=== PATIENT | female | born 1950 | race Caucasian/White ===

== ENCOUNTER 2025-01-14 07:29 | Day surgery (SDC) | payer MEDICARE ==
[2025-01-13 11:24] LABS: MEAN PLATELET VOLUME 8.6 FL (7.4-10.4); RED CELL DISTRIBUTION WIDTH 14.0 % (11.5-14.5)
[2025-01-13 11:38] LABS: CREATININE 1.20 MG/DL (0.40-0.90); TOTAL CARBON DIOXIDE 27.0 MMOL/L (24-32); eGFR 44 ML/MIN
[2025-01-13 11:52] LABS: APTT 27 SECONDS (22-32); INR 1.0 INR
[2025-01-14] VITALS (12 sets, daily range): BP systolic 125–161; BP diastolic 72–100; PULSE 40–88; RESP 16; TEMP 97.6; O2SAT 93–97
[~2025-01-14] VITALS: Ht 167.6 cm; Wt 105.1 kg
--- NOTE | 2025-01-14 07:50 | ELECTROCARDIOGRAPH REPORT ---
[facility] Test Date: 2025-01-14 Test Time: 07:48:24 Pat Name: ANETA HOLLIDAY Department: SHORT STAY 1ST FLOOR Room: Gender: F Satellite Technician: AMAURY : 1950 Requested By: CLEMENT MUÑIZ Order Number: [id number] Reading MD: Dr. Yenny Dugan Measurements Intervals [place] Rate: 41 P: 33 IN: 234 QRS: -62 QRSD: 111 T: 15 QT: 502 QTc: 415 Interpretive Statements Sinus bradycardia Prolonged IN interval Left anterior fascicular block Abnormal R-wave progression, late transition Borderline T abnormalities, anterior leads Electronically Signed On 01-15-2025 6:54:[address] Yenny Dugan Please click the below link to view image of tracing.
[2025-01-14] MEDS ORDERED: ceFAZolin 2gm/dext,iso 50mL 50 ML IV ONE (08:10)
[2025-01-14] MEDS ORDERED: clindamycin-Cleocin 900mg/D5W 50 ML IV ONE (08:15)
[2025-01-14] MEDS ORDERED: ESTR42.510 TRANSUR (08:24)
[2025-01-14] MEDS ORDERED: FLEC100T PO (08:24)
[2025-01-14] MEDS ORDERED: CHOL500061 PO (08:24)
[2025-01-14] MEDS ORDERED: Areds (08:24)
[2025-01-14] MEDS ORDERED: KRIL1CAP40 PO (08:24)
[2025-01-14] MEDS ORDERED: LEVO100T9 PO (08:24)
[2025-01-14] MEDS ORDERED: CARV6.253 PO (08:24)
[2025-01-14] MEDS ORDERED: LIDOcaine 1% W/epiNEPHrine 1:100,000 20ml vial ONE (08:52)
[2025-01-14] MEDS ORDERED: midazolam 1 mg/ML 2ml injection ONE (08:52)
[2025-01-14] MEDS ORDERED: fentaNYL/PF 50MCG/1 ML 2ML syringe ONE (08:52)
[2025-01-14] MEDS ORDERED: vancomycin 1,000mg inj ONE (09:18)
[2025-01-14] MEDS ORDERED: metoprolol tartrate 1mg/ml inj IV ONE (10:16)
[2025-01-14] MEDS ORDERED: CLIN150C2 PO (13:33)
[2025-01-14] MEDS ORDERED: APIX5TAB3 PO (13:33)
[2025-01-14] MEDS: vancomycin/NS 1 GM ADD-VANTAGE 250 ML IV ONE (13:41)
[2025-01-14] MEDS: normal saline 1000ml 1,000 ML IV SCH (13:44)
--- NOTE | 2025-01-14 16:08 | RADIOLOGY REPORT ---
CLINICAL HISTORY: S/P PACEMAKER TECHNIQUE: Chest 2 views of the chest were obtained. COMPARISON: None FINDINGS: The heart size and pulmonary vasculature are normal. The lungs are clear. No pleural effusion is present. There is a dual lead left chest wall pacing device. There are surgical fabian projecting over the left upper thorax. No pneumothorax is seen. IMPRESSION: NO ACUTE CARDIOPULMONARY PROCESS.
--- NOTE | 2025-01-22 06:03 | CARDIOLOGY REPORT ---
DATE OF SERVICE: 01/14/2025 DICTATING PHYSICIAN: SABRINA Fraga MD GENDER: Female. AGE: 74 years. HEIGHT: 167 cm. BODY SURFACE AREA: 2.1 m2. PRIMARY PHYSICIAN: JUDITH Lantigua VERIFICATION CLERK: SABRINA Fraga MD INDICATION: The patient is a 74-year-old postmenopausal female with prediabetes, hypertension, hyperlipidemia, history of syncope, sick sinus syndrome with symptomatic tachy and vickie episodes. The patient has been having presyncopal episodes with 2-3 episodes per month and the patient has a history of a CT and also history of paroxysmal atrial fibrillation since 2016. Lately, the patient has been having episodes of symptomatic tachy and vickie episodes. The patient had an event monitor on 11/06/2020, slowest heart rate of 41, and there were also episodes of SVT. The patient has been having progressively increasing tiredness and fatigue and symptomatic bradycardia and presyncopal episodes. After discussing risks, benefits and alternative options, the patient prefers to proceed with treatment with dual-chamber pacemaker implantation. Risks, benefits, and alternative options were discussed. Informed consent was obtained. PREPROCEDURE DIAGNOSIS: Sick sinus syndrome with symptomatic tachy and vickie episode. POSTPROCEDURE DIAGNOSIS: Sick sinus syndrome with symptomatic tachy and vickie episode. PROCEDURES DONE: 1. Fluoroscopy. 2. AV sequential pacemaker implantation. 3. Conscious sedation time of 75 minutes. BLOOD LOSS: Less than 5 mL. DESCRIPTION OF PROCEDURE: The left infraclavicular area was prepped and draped in the usual fashion. Two separate accesses of the left subclavian vein with micropuncture technique . Two micro puncture wire for positioned in the left subclavian vein Subsequently the replaced with and 2J-wires. A horizontal incision was placed in the left infraclavicular area. Using blunt dissection and electrocautery, prepectoral subcutaneous pacemaker pocket was fashioned. External ends of J-wires retrieved into the pacemaker pocket. Two 7-Angolan sheaths were advanced over them. Through one of them, RV lead was advanced to the RV apex, screwed into the RV apex, appropriate pacing and sensing thresholds were obtained. A good spot was obtained after second location. The sheath was removed via peel-away techniques. The lead was anchored to the subcutaneous tissue with the Ethibond. Through the second 7 Angolan sheath, RV lead was advanced to the right atrium. The screw into the right atrial appendage. Appropriate pacing and sensing thresholds were appreciated. . Pacemaker Leads were connected to the appropriate shocks to the pulse generator. The set screws were tightened. Tug test performed. The pacemaker was slowly placed in the pacemaker pocket. The pocket was irrigated with copious antibiotic solution. The pocket closed with continuous 0 Vicryl, followed by interrupted 0 Vicryl, third layer of interrupted 2-0 Vicryl. Skin was approximated with fabian. Pressure dressing applied. TECHNICAL INFORMATION: Device was a Medtronic dual-chamber pacemaker. It is a Medtronic Melissa MRI compatible pacemaker, model number W3DR01, serial number [id number], Medtronic, 01/29/2025, in the left pectoral location. Right atrial lead: Model #228853, 52 cm long, serial number [id number]. Medtronic, 01/14/2025, over right atrial appendage. P-wave amplitude 1.5 mV, , atrial flutter. RV lead: Model number 5076, 68 cm long, serial number [id number]. Medtronic, 01/14/2025, in the RV apex. R-wave of 11.6 mV, 720 ohms of impedance. Pacing to 1 at 0.4 milliseconds. IMPRESSION: A 74-year-old female with sick sinus syndrome with tachy vickie episode, underwent successful AV sequential pacemaker. The patient had no complications. RECOMMENDATIONS: Recommend anticoagulation; however, she has been resisting all along. Again, the importance of anticoagulation and stroke risk were discussed. The patient wants to think about it. SABRINA Fraga MD TID: [id number] RECEIPT: [id number] /BERNICE BOWEN
== END 2025-01-14 17:10 | disposition home or self-care (01) ==
LOC: SSTAY O 07:29
PROVIDERS: ATTEND Internal Medicine Cardiovascular Disease
DX: I49.5 Sick sinus syndrome (principal); I44.0 Atrioventricular block, first degree; I44.4 Left anterior fascicular block; I48.0 Paroxysmal atrial fibrillation; E78.5 Hyperlipidemia, unspecified; I10 Essential (primary) hypertension; G47.30 Sleep apnea, unspecified; R42 Dizziness and giddiness; R53.83 Other fatigue; R73.03 Prediabetes; Z78.0 Asymptomatic menopausal state; Z79.899 Other long term (current) drug therapy; Z82.49 Family history of ischemic heart disease and other diseases of the circulatory system
CPT/HCPCS: 33208; 36415; 71046; 80048; 85025; 85610; 85730; 93005; 99152; 99153; A4565; A6402; C1785; C1898; J1200; J2250; J3010; J3373; J3490; J7030; Z7610; A6449; J0690